=== PATIENT | male | born 1990 | race African-American/Black ===

== ENCOUNTER 2024-07-18 16:14 | Outpatient (CLI) | payer MEDICARE, SELFPAY ==
--- NOTE | 2024-07-18 16:25 | XR_ITS ---
FINAL REPORT CLINICAL HISTORY: low back pain; scoliosis PT STATES UPPER AND LOWER BACK PAIN COMPARISON: None FINDINGS: THORACIC SPINE Three views of the thoracic spine were obtained. There is no fracture present. There is no malalignment. There are no significant degenerative changes. IMPRESSION: No acute process. LUMBOSACRAL SPINE 3 views of the lumbosacral spine were obtained. There is no fracture present. There is no malalignment. There are no significant degenerative changes. IMPRESSION: No acute process. Reviewed, Interpreted and Dictated by Gerardo Crespo MD Transcribed by Delfina Prajapati Authenticated and [facility]
== END 2024-07-18 23:59 | disposition home or self-care (01) ==
LOC: RAD 16:15
PROVIDERS: PCP Family Medicine; Visit Provider Family Medicine
DX: M54.50 Low back pain, unspecified (principal); M41.9 Scoliosis, unspecified
CPT/HCPCS: 72084